=== PATIENT | female | born 1980 | race Caucasian/White ===

== ENCOUNTER 2020-01-08 17:02 | Emergency (ER) | payer BC ==
[~2020-01-08] VITALS: Ht 160 cm; Wt 75.9 kg
[2020-01-08] MEDS ORDERED: cloNIDine 0.1 mg tablet PO ONE (19:20)
[2020-01-08] MEDS ORDERED: orphenadrine citrate 60mg/2ml inj. IM ONE (19:20)
[2020-01-08 19:53] VITALS: BP 117/78
== END 2020-01-08 20:14 | disposition home or self-care (01) ==
LOC: ER 17:03
DX: R51 Headache (principal); M54.2 Cervicalgia; Z98.890 Other specified postprocedural states; Z88.1 Allergy status to other antibiotic agents
CPT/HCPCS: 70450; 96372; 99284; J2360